=== PATIENT | male | born 1960 | race Caucasian/White ===

== ENCOUNTER 2016-04-24 13:06 | Emergency (ER) | payer OTHER ==
--- NOTE | 2016-04-24 14:18 | ED CLINICAL REPORT ---
Clinical Report - Physicians/Mid Levels [facility] [address] [place] [address] 04/24/2016 13:09 Patient: ARTI HICKMAN Time Seen: 14:09; initial patient contact, initial documentation, patient care assumed. Arrived- By private vehicle. Historian- patient. HISTORY OF PRESENT ILLNESS Chief Complaint: Injury to right thigh. The injury happened about 1 1/2 weeks ago. ( states that there is a fb in his R upper inner thigh, but not sure what it is or how it got there). Patient is experiencing moderate pain. Patient denies injury to the head or neck. REVIEW OF SYSTEMS No swelling, tingling, weakness, numbness or skin laceration. He has no pain on weight bearing. All systems otherwise negative, except as recorded above. PAST HISTORY See nurses notes. ( PAST HISTORY Primary physician (Kati) Alcoholism. Depression. Anxiety Reaction. Constipation. Arrhythmia. Additional Surgeries: no known surgeries.). SOCIAL HISTORY Light tobacco smoker. Heavy alcohol use. Last drink was less than 24 hours ago. Patient is a longstanding alcoholic. No drug use. No recent travel. Is a local resident. FAMILY HISTORY No significant family medical history. ADDITIONAL NOTES The nursing notes have been reviewed with agreement regarding the chief complaint, HPI, ROS, PMH and patient medications and allergies. PHYSICAL EXAM Vital Signs: 04/24/2016 13:29 BP: 130/63. HR: 99. RR: 18. O2 saturation: 97%. Temp: 98 F. Pain level now: 0/10. Have been reviewed as normal and appear to be correct. Appearance: Alert. Oriented X3. No acute distress. Head: Head atraumatic. Eyes: Pupils equal, round and reactive to light. Eyes normal inspection. Respiratory: No respiratory distress. Abdomen: (small pea size knot noted to R inguinal/groin area, feels similar to fatty tumor). Skin: Skin intact. Skin warm and dry. Normal skin color. Normal skin turgor. Extremities: Lower extremity exam otherwise negative. Extremities otherwise negative. Gait: Normal gait. Neuro, Vascular and Tendons: Vascular status intact. Sensation intact. Motor intact. Tendon function intact. Neuro: Oriented X 3. No motor deficit. No sensory deficit. Note: isolated issue to thigh/leg. PROGRESS AND PROCEDURES Patient counseled in person regarding the patient's stable condition and diagnosis. 14:17. Differential Diagnosis: Other possible considerations: lymphadenitis, fb, abscess, folliculitis, cyst, tumor. Above considerations are based on history and physical exam. Differential diagnosis was discussed with patient. Disposition: Discharged home in good and unchanged condition (14:18). Condition: good and stable. CLINICAL IMPRESSION (R groin cyst). INSTRUCTIONS Warnings: GENERAL WARNINGS: Return or contact your physician immediately if your condition worsens or changes unexpectedly, if not improving as expected, or if other problems arise. Specifically return if problem worsens. Follow-up: Follow up with a cage manager [facility] [phone] in about one week as needed. Call for an appointment. Summary of care provided to patient. Understanding of the discharge instructions verbalized by patient. (Electronically signed by Genia Cisse A.R.N.P. 04/24/2016 15:09)
--- NOTE | 2016-04-24 14:18 | ED CLINICAL REPORT ---
Clinical Report - Physicians/Mid Levels [facility] [address] [place] [address] 04/24/2016 13:09 Patient: ARTI HICKMAN Time Seen: 14:09; initial patient contact, initial documentation, patient care assumed. Arrived- By private vehicle. Historian- patient. HISTORY OF PRESENT ILLNESS Chief Complaint: Injury to right thigh. The injury happened about 1 1/2 weeks ago. ( states that there is a fb in his R upper inner thigh, but not sure what it is or how it got there). Patient is experiencing moderate pain. Patient denies injury to the head or neck. REVIEW OF SYSTEMS No swelling, tingling, weakness, numbness or skin laceration. He has no pain on weight bearing. All systems otherwise negative, except as recorded above. PAST HISTORY See nurses notes. ( PAST HISTORY Primary physician (Kati) Alcoholism. Depression. Anxiety Reaction. Constipation. Arrhythmia. Additional Surgeries: no known surgeries.). SOCIAL HISTORY Light tobacco smoker. Heavy alcohol use. Last drink was less than 24 hours ago. Patient is a longstanding alcoholic. No drug use. No recent travel. Is a local resident. FAMILY HISTORY No significant family medical history. ADDITIONAL NOTES The nursing notes have been reviewed with agreement regarding the chief complaint, HPI, ROS, PMH and patient medications and allergies. PHYSICAL EXAM Vital Signs: 04/24/2016 13:29 BP: 130/63. HR: 99. RR: 18. O2 saturation: 97%. Temp: 98 F. Pain level now: 0/10. Have been reviewed as normal and appear to be correct. Appearance: Alert. Oriented X3. No acute distress. Head: Head atraumatic. Eyes: Pupils equal, round and reactive to light. Eyes normal inspection. Respiratory: No respiratory distress. Abdomen: (small pea size knot noted to R inguinal/groin area, feels similar to fatty tumor). Skin: Skin intact. Skin warm and dry. Normal skin color. Normal skin turgor. Extremities: Lower extremity exam otherwise negative. Extremities otherwise negative. Gait: Normal gait. Neuro, Vascular and Tendons: Vascular status intact. Sensation intact. Motor intact. Tendon function intact. Neuro: Oriented X 3. No motor deficit. No sensory deficit. Note: isolated issue to thigh/leg. PROGRESS AND PROCEDURES Patient counseled in person regarding the patient's stable condition and diagnosis. 14:17. Differential Diagnosis: Other possible considerations: lymphadenitis, fb, abscess, folliculitis, cyst, tumor. Above considerations are based on history and physical exam. Differential diagnosis was discussed with patient. Disposition: Discharged home in good and unchanged condition (14:18). Condition: good and stable. CLINICAL IMPRESSION (R groin cyst). INSTRUCTIONS Warnings: GENERAL WARNINGS: Return or contact your physician immediately if your condition worsens or changes unexpectedly, if not improving as expected, or if other problems arise. Specifically return if problem worsens. Follow-up: Follow up with a glass beveller [facility] [phone] in about one week as needed. Call for an appointment. Summary of care provided to patient. Understanding of the discharge instructions verbalized by patient. (Electronically signed by Genia Cisse A.R.N.P. 04/24/2016 15:09)
--- NOTE | 2016-04-24 14:18 | ED NURSING NOTES ---
Clinical Report - Nurses [facility] [place] [address] 04/24/2016 13:09 Patient: ARTI HICKMAN TRIAGE Triage time 13:30 Apr 24 2016. Acuity: LEVEL 4. Chief Complaint: FOREIGN BODY. Alert. --13:35 Dennis Jimenez R.N. 13:29 04/24/16. BP: 130/63. HR: 99. RR: 18. O2 saturation: 97% on room air. Temp: 98 F. Pain level now: 0/10. --13:35 Dennis Jimenez R.N. 13:30 04/24/16. --13:44 Dennis Jimenez R.N. Weight: 99.7 kg stated. Height/Length: 70 inches Per Patient. BMI: 31.5. --13:29 Dennis Jimenez R.N. Medications Trazadone 60 mg QHS. --13:31 Dennis Jimenez R.N. Allergies No Known Drug Allergy. --13:31 Dennis Jimenez R.N. History <<STRICKEN ENTRY-- Arrived by private vehicle. Historian: patient. ( Patient reports he first noticed this about a week and a half ago.). PAST MEDICAL HX: No history of diabetes mellitus, hypertension or heart disease. Tetanus status: unknown. Immunizations: status is unknown. SOCIAL HX: Heavy tobacco smoker (cigarette)- less than 1 pack per day. Alcohol use; consumes beer occasionally. Last drink was less than 24 hours ago. Patient smells of ETOH in the emergency department. No infectious disease exposure. FALL RISK ASSESSMENT: Fall risk assessment completed. No fall risk identified. NUTRITIONAL RISK ASSESSMENT: The nutritional risk assessment revealed no deficiencies. FUNCTIONAL ASSESSMENT: Functional assessment: no impairments noted. LEARNING NEEDS ASSESSMENT: The learning needs assessment revealed no barriers. SKIN INTEGRITY ASSESSMENT: Skin integrity risk assessment completed. No skin integrity risk identified. --13:35 Dennis Jimenez R.N. --END STRIKE>> Correction --13:44 Cook, Dennis, R.N. PAST MEDICAL HX: ( Arrived by private vehicle. Historian: patient. ( Patient reports he first noticed this about a week and a half ago.). PAST MEDICAL HX: No history of diabetes mellitus, hypertension or heart disease. Tetanus status: unknown. Immunizations: status is unknown. SOCIAL HX: Heavy tobacco smoker (cigarette)- less than 1 pack per day. Alcohol use; consumes beer occasionally. Last drink was less than 24 hours ago. No infectious disease exposure. FALL RISK ASSESSMENT: Fall risk assessment completed. No fall risk identified. NUTRITIONAL RISK ASSESSMENT: The nutritional risk assessment revealed no deficiencies. FUNCTIONAL ASSESSMENT: Functional assessment: no impairments noted. LEARNING NEEDS ASSESSMENT: The learning needs assessment revealed no barriers. SKIN INTEGRITY ASSESSMENT: Skin integrity risk assessment completed. No skin integrity risk identified. 13:35 Dennis Jimenez R.N.). --13:44 Dennis Jimenez R.N. Interventions ID band on patient. Ambulatory. Patient instructions given: remove extra clothing. --13:35 Dennis Jimenez R.N. PHYSICAL ASSESSMENT Ambulatory to room. GENERAL / NEURO / PSYCH: Alert. Appears in no acute distress. Alexis Coma Scale: 15- eyes open spontaneously (4); best verbal response- oriented x 4 (5); best motor response- obeys commands (6). RESPIRATORY: Respirations not labored. --13:39 Dennis Jimenez R.N. 13:29 04/24/16. GI / : area: suspected foreign body (Small, pea-sized lump palpated in R groin/scrotal region.). --14:47 Dennis Jimenez R.N. NURSING PROGRESS NOTES Two patient identifiers checked. Call light placed in reach. Side rails up x 2. Bed placed in lowest position. Brakes of bed on. Patient ready for evaluation- chart flagged. --13:45 Dennis Jimenez R.N. DISPOSITION / DISCHARGE Condition at departure: unchanged. No learning barriers present. Discharge instructions provided and reviewed with the patient. Reviewed warnings (Return or contact PCP if condition worsens or changes unexpectedly.). Patient verbalized understanding. Written instructions provided in Greenlandic. The patient was discharged by the nurse practitioner. He was discharged home. He left the Emergency Department ambulatory and via private vehicle. Patient driving. --14:41 Dennis Jimenez R.N. 14:40 04/24/16. BP: 132/80. HR: 84. RR: 16. O2 saturation: 95% on room air. Temp: 98.1 F. Pain level now: 010. --14:41 Dennis Jimenez R.N. Locked/Released at 04/24/2016 14:58 by Dennis Jimenez R.N.
--- NOTE | 2016-04-24 15:09 | ED MED RECONCILIATION SUMMARY ---
Patient: ARTI HIKCMAN Medication Reconciliation Report [facility] VisitID: [id number] [address] [place] [address] 56y, M Registration Date/Time: 04/24/2016 Weight: 99.7 kg Height/Length: 70 in. BMI: 31.5 ALLERGIES: No Known Drug Allergy The patient's Home Medications are listed below: THE FOLLOWING MEDICATIONS NEED TO BE RECONCILED: Trazadone 60 mg QHS The source(s) of the original Home Medication information: Not obtained. The following Medications were given to the patient in the Emergency Department: None. The following Medications were prescribed to the patient: None.
--- NOTE | 2016-04-24 15:09 | ED DISCHARGE INSTRUCTIONS ---
Patient: RATI HICKMAN General Instructions [facility] VisitID: [id number] [address] [place] [address] 56y, M Registration Date/Time: 04/24/2016 (R groin cyst). INSTRUCTIONS Warnings: GENERAL WARNINGS: Return or contact your physician immediately if your condition worsens or changes unexpectedly, if not improving as expected, or if other problems arise. Specifically return if problem worsens. Follow-up: Follow up with a tourist agent [facility] [phone] in about one week as needed. Call for an appointment. Summary of care provided to patient. Understanding of the discharge instructions verbalized by patient. (Electronically signed by Genia Cisse A.R.NBonifacio 04/24/2016 15:09)
--- NOTE | 2016-04-24 15:09 | ED MED RECONCILIATION SUMMARY ---
Patient: ARTI HICKMAN Medication Reconciliation Report [facility] VisitID: [id number] [address] [place] [address] 56y, M Registration Date/Time: 04/24/2016 Weight: 99.7 kg Height/Length: 70 in. BMI: 31.5 ALLERGIES: No Known Drug Allergy The patient's Home Medications are listed below: THE FOLLOWING MEDICATIONS NEED TO BE RECONCILED: Trazadone 60 mg QHS The source(s) of the original Home Medication information: Not obtained. The following Medications were given to the patient in the Emergency Department: None. The following Medications were prescribed to the patient: None.
--- NOTE | 2016-04-24 15:09 | ED DISCHARGE INSTRUCTIONS ---
Patient: ARTI HICKMAN General Instructions [facility] VisitID: [id number] [address] [place] [address] 56y, M Registration Date/Time: 04/24/2016 (R groin cyst). INSTRUCTIONS Warnings: GENERAL WARNINGS: Return or contact your physician immediately if your condition worsens or changes unexpectedly, if not improving as expected, or if other problems arise. Specifically return if problem worsens. Follow-up: Follow up with a gate manager [facility] [phone] in about one week as needed. Call for an appointment. Summary of care provided to patient. Understanding of the discharge instructions verbalized by patient. (Electronically signed by Genia Cisse A.R.NBonifacio 04/24/2016 15:09)
--- NOTE | 2016-04-24 15:09 | ED MAR SUMMARY ---
..... Medication Administration Record [facility] [address] [place], [place] [id number] Patient: ARTI HICKMAN Visit ID: [id number] 56y, M Weight: 99.7 kg Height/Length: 70 in BMI: 31.5 ALLERGIES: No Known Drug Allergy
--- NOTE | 2016-04-24 15:09 | ED MAR SUMMARY ---
..... Medication Administration Record [facility] [address] [place], [place] [id number] Patient: ARTI HICKMAN Visit ID: [id number] 56y, M Weight: 99.7 kg Height/Length: 70 in BMI: 31.5 ALLERGIES: No Known Drug Allergy
== END 2016-04-24 14:50 | disposition home or self-care (01) ==
LOC: ED SRH 13:06
DX: L72.9 Follicular cyst of the skin and subcutaneous tissue, unspecified (principal); F17.210 Nicotine dependence, cigarettes, uncomplicated